=== PATIENT | male | born 1980 | race Caucasian/White ===

== ENCOUNTER 2023-12-12 20:58 | Inpatient (IN) | payer MEDICAID ==
[~2023-12-12] VITALS: Ht 175.3 cm; Wt 106.6 kg
[2023-12-12] MEDS ORDERED: METF-1211 PO (21:12)
[2023-12-12 21:20] LABS: GLUCOMETER DEV NAME(LOC) ER.7; GLUCOSE,POINT OF CARE 156 MG/DL (70-110)
[2023-12-12 21:48] LABS: BASOPHILS % (AUTO) 0.5 % (0.0-2.0); EOSINOPHILS % (AUTO) 0.2 % (1.0-6.0); HEMATOCRIT 41.4 % (41-53); LYMPHOCYTES # (AUTO) 1.4 K/uL (1.0-4.8); LYMPHOCYTES % (AUTO) 16.1 % (22.0-44.0); MEAN CORPUSCULAR HEMOGLOBIN 30.4 pg (26.0-34.0); MEAN CORPUSCULAR HGB CONC 33.8 G/dL (31.0-37.0); MEAN CORPUSCULAR VOLUME 90 fL (80-100); MONOCYTES # (AUTO) 0.7 K/uL (0.1-1.0); MONOCYTES % (AUTO) 7.6 % (2.0-9.0); NEUTROPHILS # (AUTO) 6.7 K/uL (1.8-7.7); NEUTROPHILS % (AUTO) 75.6 % (40.0-70.0); PLATELET COUNT (AUTO) 265 K/uL (150-450); RED CELL DISTRIBUTION WIDTH 13.3 % (11.5-14.5); WHITE BLOOD COUNT (AUTO) 8.9 K/uL (4.5-11.0)
[2023-12-12 21:58] LABS: ANION GAP 16 mmol/L (8-16); CALCIUM, TOTAL 8.4 mg/dL (8.8-10.5); CARBON DIOXIDE 19 mmol/L (22-29); CHLORIDE 101 mmol/L (98-107); CREATININE 1.17 mg/dL (0.60-1.30); GLOMERULAR FILTR. RATE CALC > 60 mL/min (>60); GLUCOSE,RANDOM 161 mg/dL (70-110); POTASSIUM 3.8 mmol/L (3.5-5.1); SODIUM SERUM 136 mmol/L (136-145); UREA NITROGEN, BLOOD 14 mg/dL (7-18)
[2023-12-12 22:05] LABS: ALCOHOL, BLOOD (SERUM) 83 mg/dL (0-10)
[2023-12-13] VITALS (9 sets, daily range): BP systolic 100–128; BP diastolic 60–86; PULSE 75–108; RESP 12–18; TEMP 96.9–98; O2SAT 96–100
[2023-12-13] MEDS: LORazepam 2 MG TABLET PO ONE (00:49)
[2023-12-13] MEDS: HALOPERIDOL 5 MG TABLET PO ONE (00:49)
[2023-12-13 01:00] LABS: COVID AG,FIA SOURCE NASAL SWAB
[2023-12-13 01:09] LABS: SARS-COV2 (COVID) ANTIGEN,FIA Negative (Negative)
[2023-12-13 02:35] LABS: APPEARANCE,URINE CLEAR (CLEAR); BILIRUBIN,URINE NEGATIVE (NEGATIVE); COLOR,URINE YELLOW (YELLOW); GLUCOSE, URINE (UA) 70-100 mg/dL (NEGATIVE); KETONES,URINE 80-100 mg/dL (NEGATIVE); LEUKOCYTE ESTERASE ,URINE NEGATIVE (NEGATIVE); NITRATE,URINE NEGATIVE (NEGATIVE); OCCULT BLOOD,URINE NEGATIVE (NEGATIVE); PROTEIN,URINE 30-70 mg/dL (NEGATIVE); SPECIFIC GRAVITIY, URINE 1.023 (1.003-1.030); UROBILINOGEN,URINE <=1.0 mg/dL (<=1.0)
[2023-12-13 02:36] LABS: BACTERIA,URINE None Seen /HPF (None Seen); RBC,URINE None Seen /HPF (0-2); SQUAMOUS EPITHELIAL CELL,UR Few /LPF (None Seen); WBC,URINE None Seen /HPF (0-5)
[2023-12-13 02:42] LABS: ALCOHOL, URINE DRUG SCREEN NEGATIVE (NEGATIVE); AMPHET/METH SCREEN,URINE POSITIVE (NEGATIVE); BARBITURATE SCREEN, URINE NEGATIVE (NEGATIVE); BENZODIAZEPINES SCREEN,URINE POSITIVE (NEGATIVE); CANNABINOID SCREEN,URINE NEGATIVE (NEGATIVE); COCAINE SCREEN,URINE NEGATIVE (NEGATIVE); METHADONE SCREEN, URINE NEGATIVE (NEGATIVE); OPIATE SCREEN,URINE NEGATIVE (NEGATIVE); PHENCYCLIDINE SCREEN,URINE NEGATIVE (NEGATIVE)
[2023-12-13] MEDS: LORazepam 2 MG TABLET PO PRN (13:16)
[2023-12-13] MEDS ORDERED: PNEUMOCOCCAL VACCINE POLYVALENT 0.5 ML SYRINGE [PPSV23] IM. ONE (13:30)
[2023-12-13] MEDS ORDERED: PETROLATUM,WHITE 28 GM JELLY TP PRN (14:00)
[2023-12-13] MEDS ORDERED: LOPERAMIDE HCL 2 MG CAPSULE PO PRN (14:00)
[2023-12-13] MEDS ORDERED: ALBUTEROL SULFATE HFA 90 MCG/PUFF 8 GM INHALER IH PRN (14:00)
[2023-12-13] MEDS ORDERED: GLUCAGON,HUMAN RECOMBINANT 1 MG VIAL IM PRN (14:00)
[2023-12-13] MEDS ORDERED: BACITRACIN 28 GM OINTMENT TP PRN (14:00)
[2023-12-13] MEDS ORDERED: OMEPRAZOLE 20 MG CAPSULE PO PRN (14:00)
[2023-12-13] MEDS ORDERED: ONDANSETRON HCL 4 MG TABLET PO PRN (14:00)
[2023-12-13] MEDS ORDERED: ACETAMINOPHEN 325 MG TABLET PO PRN (14:00)
[2023-12-13] MEDS ORDERED: MAG HYDROX/ALUMINUM HYD/SIMETH ES 30 ML SUSPENSION UDCUP PO PRN (14:00)
[2023-12-13] MEDS ORDERED: CloNIDine HCL 0.1 MG TABLET PO PRN (14:00)
[2023-12-13] MEDS ORDERED: BENZOCAINE/MENTHOL LOZENGE PO PRN (14:00)
[2023-12-13] MEDS ORDERED: DOCUSATE SODIUM 100 MG CAPSULE PO PRN (14:00)
[2023-12-13] MEDS: MetFORMIN HCL 500 MG TABLET PO SCH (16:51)
[2023-12-13 17:00] LABS: GLUCOMETER DEV NAME(LOC) BV2S.; GLUCOSE,POINT OF CARE 137 MG/DL (70-110)
[2023-12-13] MEDS: EMPAGLIFLOZIN 10 MG TABLET PO SCH (17:00)
[2023-12-13 20:10] LABS: GLUCOMETER DEV NAME(LOC) BV2S.; GLUCOSE,POINT OF CARE 189 MG/DL (70-110)
[2023-12-13] MEDS: INSULIN LISPRO 100 UNITS/ML SQ PRN (20:38)
[2023-12-14] VITALS (7 sets, daily range): BP systolic 85–121; BP diastolic 53–84; PULSE 81–100; RESP 16–18; TEMP 96.7–97.7; O2SAT 97–99
[2023-12-14 06:25] LABS: GLUCOMETER DEV NAME(LOC) BV2S.; GLUCOSE,POINT OF CARE 173 MG/DL (70-110)
[2023-12-14] MEDS: ARIPiprazole 10 MG TABLET PO SCH (10:43)
[2023-12-14] MEDS: ATORVASTATIN CALCIUM 20 MG TABLET PO SCH (10:43)
[2023-12-14 11:15] LABS: GLUCOMETER DEV NAME(LOC) BV2S.; GLUCOSE,POINT OF CARE 173 MG/DL (70-110)
[2023-12-14] MEDS: CHLORHEXIDINE GLUCONATE 0.12% 15 ML UDCUP ORAL RINSE PO SCH (13:00)
[2023-12-14 17:20] LABS: GLUCOMETER DEV NAME(LOC) BV2S.; GLUCOSE,POINT OF CARE 163 MG/DL (70-110)
[2023-12-15 08:04] VITALS: BP 116/70; PULSE 89; RESP 18; TEMP 97.9; O2SAT 97
[2023-12-15] MEDS: ARIPiprazole 5 MG TABLET PO SCH (09:06)
[2023-12-15 16:00] LABS: GLUCOMETER DEV NAME(LOC) BV2S.; GLUCOSE,POINT OF CARE 129 MG/DL (70-110)
[2023-12-15 16:51] VITALS: BP 124/88; RESP 18; O2SAT 97
[2023-12-15 17:01] LABS: GLUCOMETER DEV NAME(LOC) BV2S.; GLUCOSE,POINT OF CARE 163 MG/DL (70-110)
[2023-12-15 20:22] VITALS: BP 119/68; PULSE 78; RESP 21; TEMP 97.8; O2SAT 97
[2023-12-15] MEDS: ZOLPIDEM TARTRATE 10 MG TABLET PO PRN (21:21)
[2023-12-15 22:35] LABS: GLUCOMETER DEV NAME(LOC) BV2S.; GLUCOSE,POINT OF CARE 118 MG/DL (70-110)
[2023-12-16 06:25] LABS: GLUCOMETER DEV NAME(LOC) BV2S.; GLUCOSE,POINT OF CARE 139 MG/DL (70-110)
[2023-12-16 08:06] VITALS: BP 119/79; PULSE 90; RESP 18; TEMP 98.4; O2SAT 97
[2023-12-16] MEDS: HALOPERIDOL 5 MG TABLET PO PRN (09:18)
[2023-12-16 11:46] LABS: GLUCOMETER DEV NAME(LOC) BV2S.; GLUCOSE,POINT OF CARE 148 MG/DL (70-110)
[2023-12-16 20:46] VITALS: BP 106/61; PULSE 94; RESP 18; TEMP 97.2; O2SAT 96
[2023-12-16] MEDS: TraZODone HCL 100 MG TABLET PO SCH (21:23)
[2023-12-16 21:35] LABS: GLUCOMETER DEV NAME(LOC) BV2S.; GLUCOSE,POINT OF CARE 197 MG/DL (70-110)
[2023-12-16 21:35] LABS: GLUCOMETER DEV NAME(LOC) BV2S.; GLUCOSE,POINT OF CARE 134 MG/DL (70-110)
[2023-12-17 06:35] LABS: GLUCOMETER DEV NAME(LOC) BV2S.; GLUCOSE,POINT OF CARE 146 MG/DL (70-110)
[2023-12-17 08:14] VITALS: BP 106/71; PULSE 91; RESP 18; TEMP 96.6; O2SAT 95
[2023-12-17] MEDS: BusPIRone HCL 10 MG TABLET PO SCH (08:38)
[2023-12-17] MEDS: GABAPENTIN 300 MG CAPSULE PO SCH (08:38)
[2023-12-17 11:06] VITALS: RESP 18
[2023-12-17] MEDS: IBUPROFEN 600 MG TABLET PO PRN (11:06)
[2023-12-17 11:36] LABS: GLUCOMETER DEV NAME(LOC) BV2S.; GLUCOSE,POINT OF CARE 126 MG/DL (70-110)
[2023-12-17 12:06] VITALS: RESP 18
[2023-12-17 19:46] LABS: GLUCOMETER DEV NAME(LOC) BV2S.; GLUCOSE,POINT OF CARE 168 MG/DL (70-110)
[2023-12-17 20:22] VITALS: BP 110/66; PULSE 94; RESP 18; TEMP 96.9; O2SAT 96
[2023-12-17 21:06] LABS: GLUCOMETER DEV NAME(LOC) BV2S.; GLUCOSE,POINT OF CARE 172 MG/DL (70-110)
[2023-12-18 06:30] LABS: GLUCOMETER DEV NAME(LOC) BV2S.; GLUCOSE,POINT OF CARE 127 MG/DL (70-110)
[2023-12-18] MEDS: MAGNESIUM HYDROXIDE SUSPENSION 30 ML UDCUP PO PRN (08:02)
[2023-12-18 08:29] VITALS: BP 115/65; PULSE 90; RESP 16; TEMP 97.6; O2SAT 97
[2023-12-18 11:31] LABS: GLUCOMETER DEV NAME(LOC) BV2S.; GLUCOSE,POINT OF CARE 103 MG/DL (70-110)
[2023-12-18 16:30] LABS: GLUCOMETER DEV NAME(LOC) BV2S.; GLUCOSE,POINT OF CARE 138 MG/DL (70-110)
[2023-12-18 20:27] VITALS: BP 110/70; PULSE 87; RESP 16; TEMP 97.3; O2SAT 97
[2023-12-19 05:15] LABS: GLUCOMETER DEV NAME(LOC) BV2S.; GLUCOSE,POINT OF CARE 142 MG/DL (70-110)
[2023-12-19 06:36] LABS: GLUCOMETER DEV NAME(LOC) BV2S.; GLUCOSE,POINT OF CARE 124 MG/DL (70-110)
[2023-12-19 08:19] VITALS: BP 118/66; PULSE 86; RESP 18; TEMP 97.7; O2SAT 98
[2023-12-19] MEDS ORDERED: BUSP10TA23 PO (09:13)
[2023-12-19] MEDS ORDERED: BUSP5TAB20 PO (09:15)
[2023-12-19] MEDS ORDERED: GABA-1181 PO (09:16)
[2023-12-19] MEDS ORDERED: TRAZ-186 PO (09:18)
[2023-12-19] MEDS ORDERED: ARIP5TAB8 PO (09:20)
[2023-12-19] MEDS ORDERED: EMPA10TA3 PO (09:55)
[2023-12-19] MEDS ORDERED: ATOR10TA69 PO (09:56)
== END 2023-12-19 10:15 | disposition home or self-care (01) | DRG 750 ==
LOC: EMS 20:58 → B2S 12-13 08:02
PROVIDERS: ADMIT Psychiatry & Neurology Psychiatry; ATTEND Psychiatry & Neurology Psychiatry
DX: F25.0 Schizoaffective disorder, bipolar type (principal); R45.851 Suicidal ideations; E11.9 Type 2 diabetes mellitus without complications; F41.9 Anxiety disorder, unspecified; Z20.822 Contact with and (suspected) exposure to COVID-19; G47.00 Insomnia, unspecified; E78.5 Hyperlipidemia, unspecified; F10.10 Alcohol abuse, uncomplicated; I10 Essential (primary) hypertension; K21.9 Gastro-esophageal reflux disease without esophagitis; N43.3 Hydrocele, unspecified
CPT/HCPCS: 74018; 76870; 80048; 80307; 81001; 82962; 85025; 99285; G0480; 36415-L1; 36415-TC